=== PATIENT | male | born 1945 | race Caucasian/White ===

== ENCOUNTER → 2018-09-30 09:50 | Outpatient (CLI) | payer MEDICARE, MEDICAID, SELFPAY ==
--- NOTE | 2018-09-30 11:34 | PM.TREADMILL ---
Cardiac Stress Test Report Referral & Results Date Patient Seen: 09/30/18 Requesting provider: Joe Pascual Rest ECG: Unremarkable Procedure Note: Today following both written and verbal informed consent, the patient was exercised according to a standard [facility] protocol. The patient exercised for a total of 9 min 19 sec achieving a maximum heart rate of 149. Patient's maximum systolic blood pressure was 170 to. This was an estimated 10.1 MET's. There are no ST segment changes identified Frequent PVCs including ventricular couplets Frequent PACs Functional aerobic impairment way off the scale estimate his aerobic capacity to be equal to that of an active 57-year-old male Impression: No evidence of ischemia, excellent exercise capacity, dysrhythmias above Please note: Actual ECG tracings can be found in the PACS system.
== END ==
PROVIDERS: PCP Family Medicine Geriatric Medicine; Visit Provider Family Medicine Geriatric Medicine
DX: R13.10 Dysphagia, unspecified (principal); I49.3 Ventricular premature depolarization; I49.1 Atrial premature depolarization
CPT/HCPCS: 93016; 93017; 93018